=== PATIENT | female | born 1985 | race Caucasian/White ===

== ENCOUNTER 2017-12-10 05:48 | Inpatient (IN) ==
[2017-12-10] MEDS ORDERED: Bisacodyl 10 MG Supp RECTAL PRN (05:56)
[2017-12-10] MEDS ORDERED: Acetaminophen 325 MG Tablet PO PRN (05:56)
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
[2017-12-10] MEDS ORDERED: Morphine Inj 4 MG/ML Vial IV.PUSH ONE (10:02)
[2017-12-10] MEDS: Senna/Docusate Sodium 8.6/50 MG Tablet PO SCH ×3 (13:19→23:46)
[2017-12-10] MEDS: Sod Chloride 0.9% Inj 1,000 ML IV.CONT SCH ×2 (14:48→20:00)
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
[2017-12-10 15:54] LABS: Baso % (Auto) 0.2 % (0.0-2.0); Hematocrit 43.4 % (35.0-46.0); Hemoglobin 14.4 gm/dL (11.6-15.3); Lymph # (Auto) 0.5 th/mm3 (1.0-4.8); Lymph % (Auto) 2.5 % (9.0-44.0); Mean Corpuscular HGB Conc 33.2 % (32.0-36.0); Mean Corpuscular Hemoglobin 28.9 pg (27.0-34.0); Mean Corpuscular Volume 87.3 fL (80.0-100.0); Mean Platelet Volume 9.8 fL (7.0-11.0); Mono # (Auto) 1.2 th/mm3 (0.0-0.9); Mono % (Auto) 6.5 % (0.0-8.0); Neut # (Auto) 17.3 th/mm3 (1.8-7.7); Neut % (Auto) 90.8 % (16.0-70.0); Platelet Count 185 th/mm3 (150-450); Red Blood Count 4.98 mil/mm3 (4.00-5.30); Red Cell Distribution Width 16.2 % (11.6-17.2); White Blood Count 19.1 th/mm3 (4.0-11.0)
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
[2017-12-10] MEDS: Morphine Inj 4 MG/ML Vial IV.PUSH PRN ×2 (19:57→23:56)
[2017-12-10 22:55] LABS: Albumin 3.4 g/dL (3.4-5.0); Anion Gap 8 meq/L (5-15); Aspartate Aminotransferase 38 U/L (15-37); Blood Urea Nitrogen 8 mg/dL (7-18); Calcium 8.6 mg/dL (8.5-10.1); Carbon Dioxide 26.1 meq/L (21.0-32.0); Chloride 104 meq/L (98-107); Glomerular Filtration Rate Greater Than 89 mL/min (>89); Glucose,Random 112 mg/dL (74-106); Potassium 3.4 meq/L (3.5-5.1); Sodium 138 meq/L (136-145)
[2017-12-10 22:57] LABS: Alanine Aminotransferase 71 U/L (10-53)
[2017-12-10 23:00] LABS: Alkaline Phosphatase 73 U/L (45-117); Total Protein 7.1 g/dL (6.4-8.2)
[2017-12-11] MEDS ORDERED: Magnesium Sulfate Inj 2 GM in Sodium Chlor 0.9% Inj 96 ML IV.SIG PRN (00:07)
[2017-12-11] MEDS ORDERED: Potassium Phosphate 500 MG Soluble Tablet PO PRN ×2 (00:07)
[2017-12-11] MEDS ORDERED: Potassium Chlor 40 mEq Premix 40 MEQ/100 ML PIGGYBACK IV.SIG PRN ×2 (00:07)
[2017-12-11] MEDS ORDERED: Sodium Phosphate Inj 30 MMOL in Sodium Chlor 0.9% Inj 250 ML IV.SIG PRN (00:07)
[2017-12-11] MEDS ORDERED: Potassium Phosphate Inj 30 MMOL in Sodium Chlor 0.9% Inj 250 ML IV.SIG PRN (00:07)
[2017-12-11] MEDS ORDERED: Magnesium Oxide 400 MG Tablet PO PRN (00:07)
[2017-12-11] MEDS ORDERED: Magnesium Sulfate Inj 4 GM in Sodium Chlor 0.9% Inj 92 ML IV.SIG PRN (00:07)
[2017-12-11] MEDS ORDERED: Potassium Chloride 25 MEQ Effervescent Tablet PO PRN (00:07)
[2017-12-11] MEDS ORDERED: Potassium Chlor 20 mEq Premix 20 MEQ/100 ML PIGGYBACK IV.SIG PRN (00:07)
[2017-12-11] MEDS: Potassium Chlor 20 mEq Premix 20 MEQ/100 ML PIGGYBACK IV.SIG PRN ×2 (00:59→02:17)
[2017-12-11] MEDS: Morphine Inj 4 MG/ML Vial IV.PUSH PRN ×4 (03:59→23:47)
[2017-12-11] MEDS ORDERED: Chlorhexidine Gluconate 2% 1 Pack (2 Cloths) TOPICAL SCH (04:00)
[2017-12-11] MEDS ORDERED: Chlorhexidine Gluconate 2% 1 Pack (2 Cloths) TOPICAL PRN (04:00)
[2017-12-11 04:38] LABS: Baso % (Auto) 0.2 % (0.0-2.0); Eos % (Auto) 0.1 % (0.0-4.0); Hematocrit 40.7 % (35.0-46.0); Hemoglobin 13.5 gm/dL (11.6-15.3); Lymph % (Auto) 5.9 % (9.0-44.0); Mean Corpuscular HGB Conc 33.1 % (32.0-36.0); Mean Corpuscular Hemoglobin 29.1 pg (27.0-34.0); Mean Corpuscular Volume 87.8 fL (80.0-100.0); Mono # (Auto) 1.2 th/mm3 (0.0-0.9); Mono % (Auto) 7.1 % (0.0-8.0); Neut # (Auto) 15.1 th/mm3 (1.8-7.7); Neut % (Auto) 86.7 % (16.0-70.0); Platelet Count 190 th/mm3 (150-450); Red Blood Count 4.63 mil/mm3 (4.00-5.30); Red Cell Distribution Width 16.2 % (11.6-17.2); White Blood Count 17.4 th/mm3 (4.0-11.0)
[2017-12-11 05:04] LABS: Anion Gap 8 meq/L (5-15); Blood Urea Nitrogen 6 mg/dL (7-18); Calcium 8.4 mg/dL (8.5-10.1); Carbon Dioxide 26.6 meq/L (21.0-32.0); Chloride 105 meq/L (98-107); Glomerular Filtration Rate Greater Than 89 mL/min (>89); Glucose,Random 109 mg/dL (74-106); Sodium 140 meq/L (136-145)
[2017-12-11] MEDS ORDERED: Ketamine Inj 50 MG/5 ML Syringe IV.PUSH ONE (07:44)
[2017-12-11] MEDS ORDERED: HYDROmorphone PF Inj 2 MG/ML Vial ONE (07:44)
[2017-12-11] MEDS ORDERED: ceFAZolin 2 GM Premix Inj 2 GM/50 ML PIGGYBACK IV.SIG ONE (07:53)
[2017-12-11] MEDS ORDERED: Bupivacaine/Epinephrine Inj 0.25% 50 ML Vial ONE (07:53)
[2017-12-11] MEDS ORDERED: fentaNYL Citrate Inj 100 MCG/2 ML Ampul ONE (08:58)
[2017-12-11] MEDS ORDERED: ceFAZolin Inj 2,000 MG in Sodium Chlor 0.9% Inj 80 ML IV.SIG SCH (10:00)
[2017-12-11] MEDS ORDERED: Post-op Orders (for Pharmacy) OTHER STA (10:00)
[2017-12-11] MEDS ORDERED: KCL 20 mEq/D5W/NaCl 0.45% Inj 1,000 ML IV.CONT SCH (10:00)
--- NOTE | 2017-12-11 10:03 | P.OP ---
- Preoperative Diagnosis (1) Colles' fracture of left radius, initial encounter for closed fracture - Postoperative Diagnosis (1) Colles' fracture of left radius, initial encounter for closed fracture Date of procedure: 12/11/17 Procedure: Open reduction internal fixation left distal radius fracture Anesthesia: GETA Surgeon: Cory Bullock MD Sheeter Helper: Jessie Rai (Ashley) (Jessie Rai (Ashley), PA-CThe surgical procedure was assisted by my physician's household personal assistant. Her presence was necessary throughout the case for manipulation and positioning of the surgical extremity. My PA was assisting me throughout the duration of this procedure. The skill set of the physician household personal assistant was medically necessary to complete this procedure. During the surgical case the surgical pathologist was working at the back table and the physician household personal assistant was directly assisting me.) Estimated blood loss (mL): 50 Tourniquet time (min): 66 Pathology: none sent Operation and Findings: Patient was taken to the operative suite and after undergoing an adequate level of general anesthesia was kept supine on the operating table. Preoperative antibiotics consisted of Ancef 2 g IV. The left upper extremity was prepped and draped in usual sterile fashion with alcohol and Hibiclens. The extremity was exsanguinated and the tourniquet inflated. An FCR approach to the distal radius was made with an incision extending from the wrist crease. This was carried out through skin and subcutaneous tissue with a knife. Hemostasis was obtained electrocautery. The FCR was identified and the tendon sheath incised. The tendon was then retracted ulnarly. The radial artery was protected. The floor of the sheath was entered. The pronator was released from the radial aspect of the distal radius. It had been partially torn. Subperiosteal dissection was carried out. The fracture was reduced. An Arthrex volar wrist plate was applied. Provisional fixation was accomplished with K wires and one cortical screw in the oblong hole for further positioning. The plate did not contour anatomically with her distal radius and an attempt was made to place distal screws first followed by fixation of the proximal plate to re-create the volar tilt. There is still a small gap. Several locking screws were placed distally under fluoroscopic guidance. Cortical screws were placed proximally after drilling. The position of the fracture reduction and placement of the internal fixation were checked both the AP and lateral planes of the C arm. The wound was thoroughly irrigated. The tourniquet was released and hemostasis obtained. It was subsequently closed in layers utilizing 2-0 Vicryl suture on the subcutaneous tissue and 3-0 nylon on the skin. Sterile dressings were applied, the patient was placed into a splint, awakened, transferred to the hospital bed and taken to the recovery room in stable condition.
[2017-12-11] MEDS ORDERED: *Meperidine Inj 25 MG/ML Vial PERIprocedural Use ONLY ONE (10:28)
[2017-12-11] MEDS ORDERED: *morphine SULFATE 4 MG/ML PERIprocedure ONLY ONE (11:03)
[2017-12-11] MEDS ORDERED: Phenylephrine/NS 1000 MCG/10ML Syringe IV.PUSH ONE (12:00)
[2017-12-11] MEDS ORDERED: Lidocaine PF 1% Inj 5 ML Syringe INFILTRATN ONE (12:00)
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
[2017-12-11] MEDS: ceFAZolin 2 GM Premix Inj 2 GM/50 ML PIGGYBACK IV.SIG SCH ×2 (14:59→23:47)
[2017-12-11] MEDS: Senna/Docusate Sodium 8.6/50 MG Tablet PO SCH ×2 (19:22→20:29)
[2017-12-12] MEDS: Morphine Inj 4 MG/ML Vial IV.PUSH PRN ×4 (03:47→21:04)
[2017-12-12] MEDS: Senna/Docusate Sodium 8.6/50 MG Tablet PO SCH ×2 (08:40→21:03)
[2017-12-12] MEDS: ceFAZolin 2 GM Premix Inj 2 GM/50 ML PIGGYBACK IV.SIG SCH (08:40)
[2017-12-12 13:12] LABS: Baso % (Auto) 0.4 % (0.0-2.0); Eos # (Auto) 0.1 th/mm3 (0.0-0.4); Eos % (Auto) 0.8 % (0.0-4.0); Hematocrit 37.2 % (35.0-46.0); Hemoglobin 12.2 gm/dL (11.6-15.3); Lymph # (Auto) 1.8 th/mm3 (1.0-4.8); Lymph % (Auto) 17.3 % (9.0-44.0); Mean Corpuscular HGB Conc 32.7 % (32.0-36.0); Mean Corpuscular Hemoglobin 29.1 pg (27.0-34.0); Mean Platelet Volume 9.8 fL (7.0-11.0); Mono # (Auto) 0.9 th/mm3 (0.0-0.9); Neut # (Auto) 7.6 th/mm3 (1.8-7.7); Neut % (Auto) 72.5 % (16.0-70.0); Platelet Count 172 th/mm3 (150-450); Red Blood Count 4.18 mil/mm3 (4.00-5.30); Red Cell Distribution Width 16.5 % (11.6-17.2); White Blood Count 10.4 th/mm3 (4.0-11.0)
[2017-12-12 13:31] LABS: Alanine Aminotransferase 59 U/L (10-53); Anion Gap 7 meq/L (5-15); Aspartate Aminotransferase 52 U/L (15-37); Blood Urea Nitrogen 7 mg/dL (7-18); Calcium 8.4 mg/dL (8.5-10.1); Carbon Dioxide 27.9 meq/L (21.0-32.0); Chloride 107 meq/L (98-107); Glomerular Filtration Rate Greater Than 89 mL/min (>89); Glucose,Random 94 mg/dL (74-106); Potassium 3.3 meq/L (3.5-5.1); Sodium 142 meq/L (136-145)
[2017-12-12 13:33] LABS: Alkaline Phosphatase 72 U/L (45-117); Total Protein 6.6 g/dL (6.4-8.2)
[2017-12-12] MEDS ORDERED: Potassium Chloride 25 MEQ Effervescent Tablet PO ONE (15:30)
--- NOTE | 2017-12-12 17:28 | P.PNOP ---
Subjective Interval history: Pt is awake and alert and sitting upright in bed. Answering questions appropriately. Feels ready for d/c tomorrow. Physical Exam Vital signs: Vital Signs 12/11/17 20:00 12/11/17 21:37 12/12/17 00:00 Temperature 98.3 F 98.7 F Pulse Rate 97 H 87 92 H Respiratory Rate 17 17 Blood Pressure 133/61 130/72 Pulse Oximetry 96 99 12/12/17 02:01 12/12/17 03:57 12/12/17 08:00 Temperature 98.6 F 97.8 F Pulse Rate 94 H 92 H 84 Respiratory Rate 17 20 Blood Pressure 125/73 121/61 Pulse Oximetry 95 97 12/12/17 09:10 12/12/17 12:00 Temperature 97.7 F Pulse Rate 81 Respiratory Rate 14 20 Blood Pressure 119/68 Pulse Oximetry 97 Intake & Output 12/11/17 12/12/17 12/12/17 18:59 06:59 18:59 Intake Total 3770 / 3770 1530 / 1530 50 / 50 Output Total 100 / 100 Balance 3670 / 3670 1530 / 1530 50 / 50 Weight 84 kg Intake: IV 870 / 870 1050 / 1050 50 / 50 D5W/1/2NS + KCL 20 mEq Inj 1, 820 / 820 000 ML @ 100 mls/hr IV.CONT . Q10H [facility] Rx#:[id number] LR 1000 mL Inj 1,000 ML @ 75 1000 / 1000 mls/hr IV.CONT .[id number] [facility] Rx# :[id number] Ancef 2 GM Premix Inj 2 gm In 50 / 50 50 / 50 50 / 50 50 ml @ 100 mls/hr IV.SIG Q8H [facility] Rx#:[id number] Oral 480 / 480 Anesthesia Amount 2400 / 2400 Other 500 / 500 Output: Estimated Blood Loss 100 / 100 Other: Other Intake Source Saline Solution # Voids 2 4 Narrative: LUE: in sling and splint, dry and intact, mild swelling of distal digits, freely able to move distal digits, NVI Results - Labs CBC & Chem 7: 12/12/17 13:05 12/12/17 13:05 Laboratory Results - last 24 hr 12/12/17 12/12/17 13:05 13:05 WBC 10.4 RBC 4.18 Hgb 12.2 Hct 37.2 MCV 89.0 MCH 29.1 MCHC 32.7 RDW 16.5 Plt Count 172 MPV 9.8 Neut % (Auto) 72.5 H Lymph % (Auto) 17.3 Carroll % (Auto) 9.0 H Eos % (Auto) 0.8 Baso % (Auto) 0.4 Neut # (Auto) 7.6 Lymph # (Auto) 1.8 Carroll # (Auto) 0.9 Eos # (Auto) 0.1 Baso # (Auto) 0.0 WBC Differential . Differential Comment Auto diff final Sodium 142 Potassium 3.3 L Chloride 107 Carbon Dioxide 27.9 Anion Gap 7 BUN 7 Creatinine 0.62 Estimated GFR Greater than 89 Random Glucose 94 Calcium 8.4 L Total Bilirubin 0.7 AST 52 H ALT 59 H Alkaline Phosphatase 72 Total Protein 6.6 Albumin 3.0 L - Procedures Open reduction internal fixation left distal radius fracture Assessment and Plan - Problem List (1) Colles' fracture of left radius, initial encounter for closed fracture Code(s): S52.532A - Colles' fracture of left radius, initial encounter for closed fracture Status: Acute - Assessment and Plan Open reduction internal fixation left distal radius fracture POD #1 Ortho status stable. Progress rehab, non w/b KARLAE No change dressing, keep splint dry and intact Clear for d/c from an orthopedic standpoint. F/U with Dr Bullock or myself or myself in 1-2 weeks.
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
[2017-12-13] MEDS: Morphine Inj 4 MG/ML Vial IV.PUSH PRN (05:07)
[2017-12-13 06:54] LABS: Baso % (Auto) 0.2 % (0.0-2.0); Eos # (Auto) 0.1 th/mm3 (0.0-0.4); Eos % (Auto) 0.7 % (0.0-4.0); Hematocrit 38.9 % (35.0-46.0); Hemoglobin 12.9 gm/dL (11.6-15.3); Lymph # (Auto) 1.5 th/mm3 (1.0-4.8); Mean Corpuscular HGB Conc 33.2 % (32.0-36.0); Mean Corpuscular Hemoglobin 29.8 pg (27.0-34.0); Mean Corpuscular Volume 89.7 fL (80.0-100.0); Mean Platelet Volume 10.1 fL (7.0-11.0); Mono # (Auto) 0.9 th/mm3 (0.0-0.9); Mono % (Auto) 9.5 % (0.0-8.0); Neut # (Auto) 6.9 th/mm3 (1.8-7.7); Neut % (Auto) 73.6 % (16.0-70.0); Platelet Count 195 th/mm3 (150-450); Red Blood Count 4.33 mil/mm3 (4.00-5.30); Red Cell Distribution Width 16.4 % (11.6-17.2); White Blood Count 9.4 th/mm3 (4.0-11.0)
[2017-12-13 07:16] LABS: Anion Gap 10 meq/L (5-15); Blood Urea Nitrogen 5 mg/dL (7-18); Calcium 8.1 mg/dL (8.5-10.1); Carbon Dioxide 25.4 meq/L (21.0-32.0); Chloride 103 meq/L (98-107); Glomerular Filtration Rate Greater Than 89 mL/min (>89); Glucose,Random 82 mg/dL (74-106); Potassium 3.8 meq/L (3.5-5.1); Sodium 138 meq/L (136-145)
[2017-12-13] MEDS: Senna/Docusate Sodium 8.6/50 MG Tablet PO SCH (08:23)
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
== END 2017-12-13 01:08 | disposition home or self-care (01) ==
LOC: NEPE 05:48 → NEDA 06:50 → N03 15:58 → N07 12-11 07:49
PROVIDERS: ADMIT Surgery; ATTEND Surgery